=== PATIENT | female | born 1945 | race Two or more races ===

== ENCOUNTER → 2017-06-12 | Outpatient (CLI) | payer MEDICARE ==
--- NOTE | 2017-06-28 23:46 | ECWPNPC ---
PATIENT NAME: EDUARDO ALTAMIRANO : 1945 GENDER: FEMALE VISIT DATE: 06/12/2017 DISCHARGE DATE: 06/12/17 1318 VISIT LOCKED DATE TIME: PHYSICIAN: WALDEMAR MCGEE RESOURCE: WALDEMAR MCGEE REASON FOR APPOINTMENT 1. BACK PAIN HISTORY OF PRESENT ILLNESS NEW PATIENT CONSULT: WHEN DID YOUR PAIN FIRST START? . BRIEFLY DESCRIBE HOW YOUR PAIN STARTED? . HOW DOES YOUR PAIN CHANGE WITH TIME? . DOES YOUR PAIN AWAKEN YOU FROM SLEEP? . HOW MANY HOURS OF SLEEP DO YOU NORMALLY GET? . ANY DIAGNOSTIC TESTING? . FACILITY WHERE TESTS WERE DONE? ____. PAIN TREATMENT TREATMENT YES CANCER HAVE YOU EVER HAD ANY TYPE OF CANCER?NO NO. PAIN SCREENING: PATIENT HAS A COMPLAINT OF ACUTE OR CHRONIC PAIN :YES FALL RISK SCREENING: SCREENING :NO FALLS IN THE PAST YEAR RODRÍGUEZ INVENTORY: QUESTIONNAIRE ASSESSEDNO DID NOT COMPLETE ASSESSMENT SCORE VALUE CALCULATED NO DENIES SUICIDAL OR HOMICIDAL IDEATION TODAY'S VISIT: NOTES: REFERRED BY DR REN GILLIS FOR CHRONIC LOW BACK PAIN.STATES HAS HAD A LONG HISTORY OF BACK PAIN AND HAD A RECENT FALL. STATES IS HAVING A HARD TIME RAISING RIGHT LEG, OR GOING UP STAIRS. NOTES PAIN IS CENTERED IN LOW BACK AND WITH RADIATION TO RIGHT BUTTUCK AND DOWN RIGHT LEG TO LEVEL TO THE FOOT. STATES SHE WANTS TO BE OFF HER PAIN MEDICATIONS. STATES SHE IS CONCERNED ABOUT A BLOCKED BLOOD VESSEL IN THE RIGHT LEG. HAS INTENSE PAIN FROM MID LATERAL THIGH TO MID CALF. PAIN DISRUPTS SLEEP. HAS TRIALED HEAT/ ICE. HAS NOT HAD ANY PT FOR BACK HAS USED A BACK BRACE. HAS NOT TRIALED ANY TENS UNIT. HAS BEEN ON OXYCODONE FOR PAIN WHICH IS HELPFUL BUT SHE WANTS OFF THIS.. CURRENT MEDICATIONS TAKING METOPROLOL SUCCINATE ER 200 MG TABLET EXTENDED RELEASE 24 HOUR 1 TABLET ORALLY ONCE A DAY TAKING TIZANIDINE HCL 4 MG TABLET 1 TABLET NEEDED ORALLY ONCE NIGHTLY TAKING GABAPENTIN 300 MG CAPSULE 1 CAPSULE ORALLY THREE TIMES A DAY TAKING CLOPIDOGREL BISULFATE 75 MG TABLET 1 TABLET ORALLY ONCE A DAY TAKING MAG64 535 (64 MG) MG TABLET EXTENDED RELEASE 1 TABLET ORALLY TWICE A DAY TAKING ASPIRIN ADULT LOW DOSE 81 MG TABLET DELAYED RELEASE 1 TABLET ORALLY ONCE A DAY TAKING ATORVASTATIN CALCIUM 40 MG TABLET 1 TABLET ORALLY ONCE A DAY TAKING VALSARTAN-HYDROCHLOROTHIAZIDE 160-25 MG TABLET 1 TABLET ORALLY ONCE A DAY TAKING OXYCODONE HCL 10 MG TABLET 1 TABLET NEEDED ORALLY EVERY 6 HRS NEEDED MDD 4 TABS MEDICATION LIST REVIEWED AND RECONCILED WITH THE PATIENT PAST MEDICAL HISTORY FRACTURED LEFT ANKLE CARDIAC DISEASE ELEVATED CHOLESTEROL BACK PAIN ALLERGIES MEDICAL TAPE: RASH: SIDE EFFECTS SURGICAL HISTORY SHUNT PLACED BETWEEN HEAD AND HEART. CARDIAC STENTS 1999, 2002 GALLBLADDER 1993 APPENDIX LEFT SHOULDER SURGERY TUBALIGATION FAMILY HISTORY FATHER: MOTHER: 3 BROTHER(S) , 2 SISTER(S) - HEALTHY. 4DAUGHTER(S) - HEALTHY. CHILDREN HAVE DIABETESONE BROTHER FROM DIABETES. SOCIAL HISTORY GENERAL: TOBACCO USE ARE YOU A:FORMER SMOKER [id number] PFS, CLERGY, PUBLIC HEALTH REFERRALS PFS REFERRAL NEEDED?NO CLERGY REFERRAL NEEDED?NO PUBLIC HEALTH REFERRAL NEEDED?NO WAS THE PROVIDER NOTIFIED OF ANY PERTINENT INFO?NO HAS THE PATIENT BEEN EDUCATED REGARDING HIS/HER PLAN OF CARE?YES HAS THE PATIENT BEEN EDUCATED REGARDING PAIN, THE RISK FOR PAIN, THE IMPORTANCE OF EFFECTIVE PAIN MANAGEMENT, AND THE PAIN ASSESSMENT PROCESS?YES PATIENT: ____. HOSPITALIZATION/MAJOR DIAGNOSTIC PROCEDURE DENIES PAST HOSPITALIZATION REVIEW OF SYSTEMS REVIEWED BY: PROVIDER: WALDEMAR COWAN . CONSTITUTIONAL: ANY CHANGE IN YOUR MEDICAL CONDITION? NO . CHILLS NO . FEVER NO . INFECTION: DO YOU HAVE NEW INFECTIONS? NO . DO YOU HAVE HISTORY OF MRSA? NO . MUSCULOSKELETAL: ANY NEW PATTERNS OF PAIN OR NUMBNESS? NO . SYTEMIC LUPUS NO . GASTROENTEROLOGY: ANY NEW CHANGE IN BOWEL CONTROL? NO . BARRETTS ESOPHAGUS NO . CIRRHOSIS NO . HEPATITIS NO . LIVER FAILURE NO . ACID REFLUX NO . UNEXPLAINED WEIGHT LOSS NO . GENITOURINARY: ANY NEW CHANGE IN BLADDER CONTROL? NO . IS THERE A CHANCE YOU COULD BE ? NO . HEMATOLOGY/LYMPH: DO YOU TAKE ANY BLOOD THINNERS? (FOR EXAMPLE- COUMADIN, PLAVIX, AGGRENOX, PLATEL, PRADAXA, OR XARELTO) NO . WHEN WAS YOUR LAST DOSE? DATE: TIME: . LOW PLATELET COUNT NO . SICKLE CELL DISEASE NO . VON WILLIEBRANDS NO . FACTOR V LEIDEN NO . THALLASEMIA NO . ANEMIA NO . EASY BRUISING YES - ON PLAVIX . NEUROLOGY: HAVE YOU FALLEN IN THE PAST 6 MONTHS? YES, A MONTH AGO FELL GETTING OUT OF BED. WENT TO ER NEXT DAY. XRAYS DONE. CT DONE. . ANY NEW EXTREMITY NUMBNESS OR WEAKNESS? NO . HEAD INJURY NO . DEMENTIA NO . CEREBRAL PALSY NO . MULTIPLE SCLEROSIS NO . DIZZINESS NO . HEADACHE NO . STROKES NO . VERTIGO NO . CARDIOLOGY: DO YOU HAVE A PACEMAKER OR DEFIBRILLATOR? NO . ANGINA NO . HEART ATTACK NO . HEART SURGERY YES, HAS MULTIPLE CARDIAC STENTS. . CONGESTIVE HEART FAILURE/FLUID OVERLOAD NO . CHEST PAIN NO . HIGH BLOOD PRESSURE NO . IRREGULAR HEART BEAT NO . RESPIRATORY: HAVE YOU BEEN SICK IN THE PAST WEEK? NO . FEVER NO . FLU LIKE SYMPTOMS? NO . CPAP NO . BYPAP NO . ASTHMA NO . EMPHYSEMA NO . CHRONIC LUNG DISEASES NO . SHORTNESS OF BREATH ON EXERTION NO . DO YOU USE ANY TYPE OF TOBACCO (SMOKE, SMOKELESS, CHEW)? NO . COUGH NO . SNORING NO . INTEGUMENTARY: DO YOU HAVE ANY RASHES OR OPEN SORES? NO . ALLERGIC/IMMUNO: ARE YOU ALLERGIC TO SHELLFISH OR IV DYE? NO . ANY NEW ALLERGIES? NO . PSYCHIATRIC: DO YOU HAVE THOUGHTS OF HURTING YOURSELF OR SOMEONE ELSE? NO . ARE YOU ABUSED, NEGLECTED, OR IN AN UNSAFE ENVIRONMENT? NO . ENDOCRINOLOGY: ARE YOU DIABETIC? NO . THYROID DISORDER NO . OTHER: DO YOU NEED ANY PRESCRIPTIONS? NO . IF YES, PLEASE LIST: ____ . ANY NEW PROBLEMS WITH YOUR MEDICATIONS? NO . WHEN DID YOU LAST EAT? ____ . WHEN DID YOU LAST DRINK? ____ . WHAT DID YOU LAST DRINK? ____ . NAME OF PERSON DRIVING YOU HOME? ____ . DO YOU HAVE ANY OTHER QUESTIONS OR CONCERNS NO . HEENT: TROUBLE SWALLOWING ADMITS - DAILY WITH COLD DRINKS . PSYCHOLOGY: STRESSORS NOTES MANY STRESSORS WITH [employer] BUSINESS AND WITH TRAVELING T HER OTHER HOME . VITAL SIGNS WT 198 LBS, HT 61 IN, BMI 37.41 INDEX, BP 192/80 MM HG, HR 53 /MIN, RR 18 /MIN, TEMP 97.6 F, OXYGEN SAT % 97%, NA INITIALS AW 1210. EXAMINATION GENERAL EXAMINATION: GENERAL APPEARANCE:WELL GROOMED. PSYCHALERT , ORIENTED X 3 , HAS DIFFICULTY STAYING O [employer]. HEENT:NORMOCEPHALIC, NECK THICK, NO LYMPHADENOPATHY, NO THYROMEGLY. LUNGS:CLEAR TO AUSCULTATION BILATERALLY, NO WHEEZES , RALES OR RHONCHI. HEART:HEART RATE REGULAR, NO CAROTID BUIT., NORMAL S1S2, NO MURMURS, CLICK OR RUBS. MUSCULOSKELETAL:POINT TENDERNESS OVER LSA AND RIGHT TROCANTER., TRIGGER POINTS AND TIGHT FIBROUS BANDS OVER LUMBOSACRAL AXIS AND ACROSS THE SACRUM. CAN FLEX TO 45 DEGREES, CANNOT EXTEND PAST THE MIDLINE. SLOW TO RISE TO STANDING POSITION. GAIT SLOW, ANTALGIC.. EXTREMITIES:MULTIPLE SURFACE VARICOSITIES. 1= EDEMA L>R LE. NEUROLOGIC EXAM:CN'S II-XII GROSSLY INTACT, PATCHY DYSESTHESIA OVER MEDIAL RIGHT THIGH. DTR'S TRACE TO ABSENT BILATERAL UPPER AND LOWER EXTREMITIES. LAB TESTS REVIEWEDMRI OF LUMBAR SPINE COMPLETED ON 07/01/16 DEMONSTRATES DIFFUSE DISC BULGE AT L2-3 WITH MINIMAL THECAL SAC COMPRESSION. MINIMAL CENTRAL CANAL STENOSIS AT L3-4 LEVEL SECONDARY TO DISC BULGGE, LIGAMENTOUS, AND FACET HYPERTROPHY. MILD CENTRAL CANAL STENOSIS AT THE L4-5 LEVEL SECONDARY TO DISC BULGE, LIGAMETOUS AND FACET HYPERTROPHY.. ASSESSMENTS LUMBAR FACET ARTHROPATHY - M12.88 (PRIMARY) TREATMENT LUMBAR FACET ARTHROPATHY NOTES: START PHYSICAL THERAPY FOR LOW BACK. CONSIDER LUMBAR FACET BLOCK IN FUTURE WHEN WE CAN PUT PLAVIX ON HOLD FOR 6 DAYS. WE WILL CHECK WITH DR FERNANDEZ FOR OK TO HOLD PLAVIX. ,FACET JOINT INJECTION MATERIAL WAS PRINTED. CLINICAL NOTES: PT STATES THAT SHE IS LEAVING FOR HER WINTER HOME IN A WEEK, AND THEN WILL BE BACK IN [place] FOR 2 WEEKS THEN RETURNING TO [place] L=FOR THE WINTER. DISCUSSED WITH HER THAT WE WILL BE GLAD TO WORK WITH HER INTERVENTIONALLY ONCE WE HAVE THE OK TO PUT HER PLAVIX ON HOLD, AND WHEN SHE SHE WILL BE HERE., FALLS CARE PLAN: 1. RECOMMEND REMOVING ALL THROW RUGS. 2. RECOMMEND NIGHT LIGHTS 3. RECOMMEND WEARING RUBBER SOLED SHOES AND TO NOT GO BAREFOOT. 4.. ADVISED TO CHANGE POSITION SLOWLY FROM SUPINE TO STANDING TO AVOID DIZZINESS. 5. ADVISED TO USE ASSISTIVE DEVICE SUCH CANE OR WALKER . , #128 - SCREENING BMI AND F/U PLAN IN : BMI ABOVE NORMAL TODAY. DISCUSSED WITH PATIENT NUTRITIONAL FOOD CHOICES TO ASSIST WITH WEIGHT LOSS. RECCOMMENDED REDUCING SALT, SUGAR, SODA INTAKE. RECOMMEND INCREASE ACTIVITY TO INCLUDE WALKING ON A REGULAR BASIS. PROCEDURE CODES FA211 ESTABILISHED PATIENT [facility] CHARGE L3668 BP SCR PRFRM RCMDD DEFIND SCR INTVL G8730 PAIN ASSESS POS TOOL F/U PLAN DOC 3016F PT SCRND UNHLTHY [place] USE 1124F ACP DISCUSS-NO DSCNMKR DOCD 1036F TOBACCO NON-USER 0518F FALL PLAN OF CARE DOCD G8427 DOC MEDS VERIFIED W/PT OR RE G8417 BMI >=30 CALCUATE W/FOLLOWUP 3288F FALL RISK ASSESSMENT DOCD DISPOSITION & COMMUNICATION FOLLOW UP CALL WHEN BACK IN [place] FOR APPOINTMENT (REASON: BACK PAIN) ELECTRONICALLY SIGNED BY ISABEL ANTHONY ON 06/28/2017 AT 02:14 PM EDT DISCLAIMER : THIS IS A VISIT SUMMARY EXTRACTED FROM THE [email or web address] CHART. IT IS NOT A COPY OF THE [email or web address] PROGRESS NOTE. [place]
== END ==
LOC: M PAIN 11:15
PROVIDERS: ATTEND Nurse Practitioner Family
DX: G89.29 Other chronic pain (principal); M12.88 Other specific arthropathies, not elsewhere classified, other specified site; M54.9 Dorsalgia, unspecified; Z87.891 Personal history of nicotine dependence; L23.1 Allergic contact dermatitis due to adhesives; Z79.82 Long term (current) use of aspirin; Z79.899 Other long term (current) drug therapy

== ENCOUNTER → 2018-08-11 | Outpatient (CLI) | payer MEDICARE ==
[~2018-08-11] MED LIST: ISOVUE-370 76% 100ML VIAL (Q9967) As Ordered
== END ==
LOC: M RAD 08:02
DX: I70.213 Atherosclerosis of native arteries of extremities with intermittent claudication, bilateral legs (principal)
CPT/HCPCS: Q9967

== ENCOUNTER → 2019-08-17 | Outpatient (CLI) | payer MEDICARE ==
--- NOTE | 2019-08-18 05:02 | REP ---
Clinical: Dyspnea. Technique: Axial noncontrast images from the thoracic inlet to the upper abdomen with coronal and sagittal re-formations. Comparison: 03/08/2019 (outside examination) . Findings: Lung olvera demonstrate scattered chronic scarring and age-related interstitial changes. Small left lower lobe consolidation on prior examination has essentially resolved with only minimal residual and possibly chronic fibroatelectatic changes now noted. No new area of consolidation. No significant nodule or mass lesion. No effusion. No pneumothorax. Tracheobronchial tree is patent. No significant adenopathy noted. Atherosclerotic changes of the thoracic aorta and coronary arteries noted along with evidence for prior stent at the origin of the left subclavian artery and CABG. Mild cardiomegaly. No pericardial effusion. Musculoskeletal structures are intact. Limited upper abdomen demonstrates normal bilateral adrenal glands and evidence of prior cholecystectomy. Stent graft at the origin of the celiac axis and superior mesenteric artery noted. Impression: 1. Previously noted small left lower lobe consolidation as essentially resolved with only minimal residual and likely chronic fibroatelectatic changes now identified in its place. 2. No new acute mediastinal or pleuroparenchymal process. Electronically Signed by Fernando Matias MD 08/18/2019 04:54 A
== END ==
LOC: M RAD 10:27
PROVIDERS: ATTEND Physician Assistant
DX: R06.00 Dyspnea, unspecified (principal)